=== PATIENT | male | born 1955 | race Caucasian/White ===

== ENCOUNTER 2018-06-23 04:49 | Emergency (ER) | payer MEDICAID ==
[~2018-06-23] VITALS: Ht 172.7 cm; Wt 77.1 kg
[2018-06-23 05:30] VITALS: BP_SYST 149
[2018-06-23 06:35] VITALS: BP_SYST 136
[2018-06-23 07:15] LABS: BILIRUBIN,URINE NEGATIVE (NEGATIVE); BLOOD, URINE 2+ (NEGATIVE); CLARITY/URINE CLEAR (CLEAR); COLOR,URINE YELLOW (YELLOW); GLUCOSE,URINE NEGATIVE (NEGATIVE); KETONES,URINE NEGATIVE (NEGATIVE); LEUKOCYTE ESTERASE ,URINE NEGATIVE (NEGATIVE); NITRITE, URINE NEGATIVE (NEGATIVE); PH,URINE 7.5 (5.0-8.0); PROTEIN URINE NEGATIVE (NEGATIVE); UROBILINOGEN,URINE 0.2 (0.2-1.0)
[2018-06-23 07:28] LABS: BACTERIA,URINE FEW /HPF (None Seen); MUCUS,URINE None Seen /LPF (None Seen); WBC,URINE 0-3 /HPF (0-3)
== END 2018-06-23 06:35 | disposition home or self-care (01) ==
LOC: SED 04:49
DX: N40.1 Benign prostatic hyperplasia with lower urinary tract symptoms (principal); R33.8 Other retention of urine; I10 Essential (primary) hypertension; Z90.49 Acquired absence of other specified parts of digestive tract
CPT/HCPCS: 81000-TC; 99283

== ENCOUNTER 2022-09-03 17:53 | Emergency (ER) | payer MEDICAID ==
[~2022-09-03] VITALS: Ht 162.6 cm; Wt 72.6 kg
[2022-09-03 18:50] VITALS: BP_SYST 143
[2022-09-03 19:08] LABS: BILIRUBIN,URINE NEGATIVE (NEGATIVE); BLOOD, URINE NEGATIVE (NEGATIVE); CLARITY/URINE CLEAR (CLEAR); COLOR,URINE YELLOW (YELLOW); GLUCOSE,URINE NEGATIVE (NEGATIVE); KETONES,URINE NEGATIVE (NEGATIVE); LEUKOCYTE ESTERASE ,URINE NEGATIVE (NEGATIVE); NITRITE, URINE NEGATIVE (NEGATIVE); PROTEIN URINE NEGATIVE (NEGATIVE); UROBILINOGEN,URINE 0.2 (0.2-1.0)
--- NOTE | 2022-09-03 19:28 | NUR ---
Patient to [facility] for evaluation.
--- NOTE | 2022-09-03 19:30 | NUR ---
patient brought in from home for urinary retention. patient reports he has not been able to urinate today. pain 02/04. vss
--- NOTE | 2022-09-03 19:32 | NUR ---
ER at bedside examining patient.
--- NOTE | 2022-09-03 19:40 | NUR ---
changed burrell catheter bag to leg bag. patient educated on usage of bag.
[2022-09-03 19:48] VITALS: BP_SYST 132
--- NOTE | 2022-09-03 19:48 | NUR ---
Patient given written and verbal discharge instructions and verbalizes understanding. ER MD discussed with patient the results and treatment provided. Patient in stable condition. ID arm band removed. No RX given. Patient educated on pain management and to follow up with PMD. Pain Scale 0/10 Opportunity for questions provided and answered.
== END 2022-09-03 19:48 | disposition home or self-care (01) ==
LOC: SED 17:53
DX: R33.9 Retention of urine, unspecified (principal); R10.2 Pelvic and perineal pain; I10 Essential (primary) hypertension; Z79.899 Other long term (current) drug therapy
CPT/HCPCS: 81003; 99284